=== PATIENT | male | born 1950 | race Caucasian/White ===

== ENCOUNTER 2018-10-16 10:57 | Outpatient (CLI) | payer MEDICARE, BC ==
--- NOTE | 2018-10-16 13:35 | CT ---
CT LUMBAR SPINE: HISTORY: Pain down right leg. FINDINGS: Axial images are obtained with coronal and sagittal reconstructions. CT images demonstrate grade II anterolisthesis of L4 on L5. Vacuum disk change is seen at the L4-5 l evel. The patient has had posterior fusion with pedicle screws involving the L4 and L5 levels bilate rally. The patient has had posterior laminectomies at the L4 level. Partial resection of the L3 spi nous process is also present without evidence of laminectomy changes. The L4 and L5 pedicle hardware is in position without evidence of loosening or fractures. IMPRESSION: 1. Continued grade II anterolisthesis of L4 on L5. 2. Extensive epidural postsurgical changes seen at the L4-5 central spinal canal. Central canal pat hology or significant stenosis cannot be excluded due to soft tissues. POS: [facility]
== END 2018-10-16 10:58 | disposition home or self-care (01) ==
LOC: CT 10:57
PROVIDERS: ATTEND Neurological Surgery
DX: M43.16 Spondylolisthesis, lumbar region (principal)
CPT/HCPCS: 72131

== ENCOUNTER 2022-09-04 18:25 | Inpatient (IN) | payer MEDICARE, BC ==
[~2022-09-04 18:25] MED LIST: Iopamidol-370 76% 500 ML 1 ML ONE
[2022-09-04] MEDS ORDERED: Labetalol HCl 100 MG/20 ML VIAL ONE (18:35)
[2022-09-04 18:41] LABS: #Basophils 0.1 thou/uL (0.0-0.2); #Eosinphils 0.2 thou/uL (0.0-0.7); #Monocytes 0.9 thou/uL (0.11-0.59); #Neutrophils 5.4 thou/uL (1.40-6.50); %Basophils 0.9 % (0.0-1.0); %Eosinophils 2.2 % (0.0-10.0); %Lymphocytes 13.3 % (21.0-51.0); %Monocytes 12.4 % (0.0-10.0); %Neutrophils 71.2 % (42.0-75.0); Hemoglobin 9.4 g/dL (14.0-18.0); Mean Corpuscular HGB CONC 35.4 g/dL (32.0-36.0); Mean Corpuscular Hemoglobin 34.5 pg (27.0-31.0); Mean Corpuscular Volume 97.5 fl (78.0-98.0); Platelet Count 521 10x3/uL (130-400); Red Blood Cell (RBC) Count 2.73 mill/uL (4.70-6.10); White Blood Cell (WBC) Count 7.5 10x3/uL (4.8-10.8)
[2022-09-04 18:54] LABS: ALT (SGPT) 18 U/L (8-55); AST (SGOT) 21 U/L (5-34); Albumin 3.9 g/dL (3.4-4.8); Alkaline Phosphatase 52 U/L (40-110); Anion Gap 15 mmol/L (10-20); BUN (Urea Nitrogen) 12 mg/dL (8.4-25.7); Bilirubin, Total 0.4 mg/dL (0.2-1.2); CK (CPK) 78 U/L (30-200); Calc. Creatinine Clearance 0 mL/min (70-130); Carbon Dioxide 20 mmol/L (23-31); Chloride 83 mmol/L (98-107); Estimated GFR 72; Globulin 2.7 g/dL (2.4-3.5); Glucose 131 mg/dL (83-110); INR-International Normal Ratio 0.9; Potassium 3.7 mmol/L (3.5-5.1); Protein, Total 6.6 g/dL (5.8-8.1); Prothrombin Time 12.8 sec (12.0-14.7)
[2022-09-04 18:59] LABS: Sodium 114 mmol/L (136-145)
[2022-09-04] MEDS ORDERED: Sodium Chloride 256 MEQ in Sterile Water Injection 936 ML IV SCH (19:30)
[2022-09-04] MEDS ORDERED: Aspirin 81 mg Enteric Coated Tablet ONE (19:47)
[2022-09-04] MEDS ORDERED: Aspirin Chewable 81 MG TAB ONE (19:47)
[2022-09-04 19:59] LABS: Anion Gap 16 mmol/L (10-20); BUN (Urea Nitrogen) 11 mg/dL (8.4-25.7); Calc. Creatinine Clearance 0 mL/min (70-130); Calcium 8.7 mg/dL (7.8-10.44); Carbon Dioxide 19 mmol/L (23-31); Chloride 82 mmol/L (98-107); Estimated GFR 88; Glucose 117 mg/dL (83-110); Potassium 3.8 mmol/L (3.5-5.1)
[2022-09-04 20:12] LABS: Sodium 113 mmol/L (136-145)
[2022-09-04] MEDS ORDERED: Acetaminophen 325 MG TAB PO PRN (21:12)
[2022-09-04] MEDS ORDERED: Ondansetron PF 4 MG/2 ML Vial IVP PRN (21:12)
[2022-09-04] MEDS ORDERED: Lorazepam 1 MG TAB PO PRN (21:14)
[2022-09-04] MEDS ORDERED: Lorazepam 2 MG/ML VIAL IM PRN (21:14)
[2022-09-04] MEDS ORDERED: Electrolyte Replacement Protocol 1 EACH FS PRN (21:15)
[2022-09-04 21:33] LABS: Bacteria/HPF None Seen HPF (None Seen); Bilirubin Negative (Negative); Blood, Urine Negative (Negative); Clarity Clear (Clear); Glucose, Urine (Dipstick) Normal (Negative); Ketone, Urine Negative (Negative); Leukocyte Negative Leu/uL (Negative); Nitrite Negative (Negative); Protein, Urine (Dipstick) Negative (Neg-Trace); RBC/HPF 0-3 HPF (0-3); Squamous Epithelial None Seen HPF (0-3); Urobilinogen Normal mg/dL (Less than 2); WBC/HPF 0-3 HPF (0-3)
[2022-09-04] MEDS ORDERED: Lorazepam 2 MG/ML VIAL SLOW IVP PRN (22:21)
[2022-09-04 22:25] LABS: Magnesium 1.6 mg/dL (1.6-2.6)
[2022-09-04 22:30] LABS: Troponin I 0.011 ng/mL (< 0.028)
[2022-09-04 22:45] LABS: Free T4 (Free Thyroxine) 0.93 ng/dL (0.70-1.48)
[2022-09-04 22:53] VITALS: BMI 29.7
[2022-09-04] MEDS: Thiamine HCl 200 MG/2 ML VIAL SLOW IVP SCH (23:07)
[2022-09-04] MEDS: Lorazepam 1 MG TAB PO SCH (23:07)
[2022-09-05 00:38] LABS: Amphetamine Not Detected (NotDetected); Barbiturates Screen Not Detected (NotDetected); Benzodiazepine Screen Not Detected (NotDetected); Cocaine Metabolite Screen Not Detected (NotDetected); Methadone Not Detected (NotDetected); Methamphetamine Not Detected (NotDetected); Opiate Screen Detected (NotDetected); Oxycodone Screen Not Detected (NotDetected); Phencyclidine (PCP) Not Detected (NotDetected); THC/Cannabinoid Screen Not Detected (NotDetected); Tricyclic Screen Detected (NotDetected)
[2022-09-05 03:39] LABS: Anion Gap 15 mmol/L (10-20); BUN (Urea Nitrogen) 10 mg/dL (8.4-25.7); Calc. Creatinine Clearance 90 mL/min (70-130); Calcium 9.1 mg/dL (7.6-10.4); Carbon Dioxide 22 mmol/L (23-31); Chloride 84 mmol/L (98-107); Estimated GFR 86; Glucose 102 mg/dL (83-110); Potassium 3.5 mmol/L (3.5-5.1); Sodium 117 mmol/L (136-145)
[2022-09-05 03:40] LABS: Troponin I 0.015 ng/mL (< 0.028)
[2022-09-05] MEDS: Lorazepam 1 MG TAB PO SCH ×4 (04:53→22:25)
[2022-09-05 06:14] LABS: #Eosinphils 0.1 thou/uL (0.0-0.7); #Lymphocytes 0.6 thou/uL (1.20-3.40); #Neutrophils 5.9 thou/uL (1.40-6.50); %Basophils 0.3 % (0.0-1.0); %Lymphocytes 8.3 % (21.0-51.0); %Monocytes 13.4 % (0.0-10.0); %Neutrophils 77.1 % (42.0-75.0); Hemoglobin 9.6 g/dL (14.0-18.0); Mean Corpuscular HGB CONC 34.5 g/dL (32.0-36.0); Mean Corpuscular Volume 98.6 fl (78.0-98.0); Mean Platelet Volume 6.3 fL (7.4-10.4); Platelet Count 507 10x3/uL (130-400); RBC Distribution Width 10.9 % (11.5-14.5); Red Blood Cell (RBC) Count 2.82 mill/uL (4.70-6.10); White Blood Cell (WBC) Count 7.6 10x3/uL (4.8-10.8)
[2022-09-05 06:32] LABS: Anion Gap 12 mmol/L (10-20); BUN (Urea Nitrogen) 9 mg/dL (8.4-25.7); Calc. Creatinine Clearance 0 mL/min (70-130); Calcium 9.1 mg/dL (7.8-10.44); Carbon Dioxide 22 mmol/L (23-31); Chloride 91 mmol/L (98-107); Estimated GFR 92; Glucose 96 mg/dL (83-110); Potassium 3.4 mmol/L (3.5-5.1); Sodium 122 mmol/L (136-145)
[2022-09-05] MEDS ORDERED: HYDROcodone/Acetaminophen 5/325 mg Tablet PO PRN (08:12)
[2022-09-05] MEDS: Multivit, Therapeutic 1 TAB PO SCH (08:39)
[2022-09-05] MEDS: Folic Acid 1 MG TAB PO SCH (08:39)
[2022-09-05] MEDS ORDERED: Potassium Chloride 20 MEQ TAB PO SCH (09:45)
[2022-09-05] MEDS: Tamsulosin HCl 0.4 MG CAP PO SCH (10:16)
[2022-09-05] MEDS: DULoxetine 30 MG CAP PO SCH (10:16)
[2022-09-05] MEDS: Fenofibrate Nanocrystallized 145 MG TAB PO SCH (10:16)
[2022-09-05] MEDS: Cyclobenzaprine 10 MG TAB PO SCH ×3 (10:16→22:26)
[2022-09-05] MEDS ORDERED: Pantoprazole 40 MG VIAL IVP SCH (11:15)
[2022-09-05 12:29] LABS: Anion Gap 15 mmol/L (10-20); BUN (Urea Nitrogen) 8 mg/dL (8.4-25.7); Calc. Creatinine Clearance 0 mL/min (70-130); Calcium 9.7 mg/dL (7.8-10.44); Carbon Dioxide 21 mmol/L (23-31); Chloride 95 mmol/L (98-107); Estimated GFR 91; Glucose 91 mg/dL (83-110); Potassium 3.5 mmol/L (3.5-5.1); Sodium 127 mmol/L (136-145)
[2022-09-05 16:40] LABS: Anion Gap 20 mmol/L (10-20); BUN (Urea Nitrogen) 7 mg/dL (8.4-25.7); Calc. Creatinine Clearance 0 mL/min (70-130); Calcium 9.9 mg/dL (7.8-10.44); Carbon Dioxide 19 mmol/L (23-31); Chloride 96 mmol/L (98-107); Estimated GFR 90; Glucose 89 mg/dL (83-110); Potassium 3.7 mmol/L (3.5-5.1); Sodium 131 mmol/L (136-145)
[2022-09-05 17:28] LABS: Hemoglobin 10.4 g/dL (14.0-18.0)
[2022-09-05] MEDS ORDERED: Lorazepam 1 MG TAB PO PRN (21:14)
[2022-09-05] MEDS: traZODone HCl 150 MG TAB PO SCH (22:25)
[2022-09-05] MEDS: Thiamine HCl 200 MG/2 ML VIAL SLOW IVP SCH (22:25)
[2022-09-05] MEDS: QUETIAPINE 200 MG PO SCH (22:25)
[2022-09-05] MEDS: Pantoprazole 40 MG VIAL IVP SCH (22:25)
[2022-09-05] MEDS: Rosuvastatin 20 MG TAB PO SCH (22:26)
[2022-09-05] MEDS: Mirtazapine 15 MG TAB PO SCH (22:26)
[2022-09-06 02:30] LABS: #Eosinphils 0.1 thou/uL (0.0-0.7); #Lymphocytes 0.7 thou/uL (1.20-3.40); #Monocytes 0.9 thou/uL (0.11-0.59); #Neutrophils 4.7 thou/uL (1.40-6.50); %Basophils 0.3 % (0.0-1.0); %Eosinophils 0.9 % (0.0-10.0); %Lymphocytes 10.4 % (21.0-51.0); %Monocytes 14.6 % (0.0-10.0); %Neutrophils 73.8 % (42.0-75.0); Mean Corpuscular HGB CONC 34.3 g/dL (32.0-36.0); Mean Corpuscular Hemoglobin 33.8 pg (27.0-31.0); Mean Corpuscular Volume 98.3 fl (78.0-98.0); Mean Platelet Volume 6.3 fL (7.4-10.4); Platelet Count 554 10x3/uL (130-400); RBC Distribution Width 11.1 % (11.5-14.5); Red Blood Cell (RBC) Count 2.96 mill/uL (4.70-6.10); White Blood Cell (WBC) Count 6.4 10x3/uL (4.8-10.8)
[2022-09-06] MEDS: Lorazepam 1 MG TAB PO SCH ×3 (02:39→15:22)
[2022-09-06 03:01] LABS: ALT (SGPT) 19 U/L (8-55); AST (SGOT) 22 U/L (5-34); Albumin 3.5 g/dL (3.4-4.8); Alkaline Phosphatase 50 U/L (40-110); Anion Gap 12 mmol/L (10-20); BUN (Urea Nitrogen) 6 mg/dL (8.4-25.7); Bilirubin, Total 0.3 mg/dL (0.2-1.2); Calc. Creatinine Clearance 0 mL/min (70-130); Calcium 9.6 mg/dL (7.8-10.44); Carbon Dioxide 25 mmol/L (23-31); Chloride 100 mmol/L (98-107); Estimated GFR 89; Globulin 2.8 g/dL (2.4-3.5); Glucose 97 mg/dL (83-110); Potassium 3.1 mmol/L (3.5-5.1); Protein, Total 6.3 g/dL (5.8-8.1); Sodium 134 mmol/L (136-145)
[2022-09-06] MEDS: Levothyroxine Sodium 75 MCG TAB PO SCH (06:16)
[2022-09-06] MEDS ORDERED: Potassium Chloride 20 MEQ TAB PO SCH (08:00)
[2022-09-06] MEDS: Cyclobenzaprine 10 MG TAB PO SCH ×3 (09:02→22:04)
[2022-09-06] MEDS: Folic Acid 1 MG TAB PO SCH (09:02)
[2022-09-06] MEDS: Fenofibrate Nanocrystallized 145 MG TAB PO SCH (09:02)
[2022-09-06] MEDS: Multivit, Therapeutic 1 TAB PO SCH (09:02)
[2022-09-06] MEDS: DULoxetine 30 MG CAP PO SCH (09:02)
[2022-09-06] MEDS: Tamsulosin HCl 0.4 MG CAP PO SCH (09:02)
[2022-09-06] MEDS: Pantoprazole 40 MG VIAL IVP SCH ×2 (09:03→22:03)
[2022-09-06] MEDS ORDERED: Lorazepam 1 MG TAB PO PRN (21:14)
[2022-09-06] MEDS: GoLYTELY 4,000 ml Bottle PO SCH (22:02)
[2022-09-06] MEDS: Thiamine HCl 200 MG/2 ML VIAL SLOW IVP SCH (22:03)
[2022-09-06] MEDS: Mirtazapine 15 MG TAB PO SCH (22:03)
[2022-09-06] MEDS: Rosuvastatin 20 MG TAB PO SCH (22:04)
[2022-09-06] MEDS: Lorazepam 0.5 MG TAB PO SCH (22:04)
[2022-09-06] MEDS: traZODone HCl 150 MG TAB PO SCH (22:04)
[2022-09-06] MEDS: QUETIAPINE 200 MG PO SCH (23:29)
[2022-09-07 02:18] LABS: SARS-CoV-2 NAA Rapid Test Not Detected (NotDetected)
[2022-09-07] MEDS: GoLYTELY 4,000 ml Bottle PO SCH (03:30)
[2022-09-07] MEDS: Lorazepam 0.5 MG TAB PO SCH ×3 (03:30→14:26)
[2022-09-07 05:42] LABS: Hemoglobin 9.7 g/dL (14.0-18.0); Mean Corpuscular HGB CONC 34.3 g/dL (32.0-36.0); Mean Corpuscular Hemoglobin 33.9 pg (27.0-31.0); Mean Corpuscular Volume 98.9 fl (78.0-98.0); Mean Platelet Volume 6.2 fL (7.4-10.4); Platelet Count 531 10x3/uL (130-400); RBC Distribution Width 11.2 % (11.5-14.5); Red Blood Cell (RBC) Count 2.84 mill/uL (4.70-6.10); White Blood Cell (WBC) Count 7.2 10x3/uL (4.8-10.8)
[2022-09-07 06:05] LABS: Anion Gap 11 mmol/L (10-20); BUN (Urea Nitrogen) 6 mg/dL (8.4-25.7); Calc. Creatinine Clearance 82 mL/min (70-130); Calcium 9.1 mg/dL (7.8-10.44); Carbon Dioxide 24 mmol/L (23-31); Chloride 103 mmol/L (98-107); Estimated GFR 75; Glucose 101 mg/dL (83-110); Potassium 3.2 mmol/L (3.5-5.1); Sodium 135 mmol/L (136-145)
[2022-09-07 06:10] LABS: Eosinophils 1 % (0-10); Lymphocytes 14 % (21-51); MDiff Complete? YES; Macrocytosis SLIGHT = 6-15 cells (100X) (0-5/hpf); Monocytes 12 % (0-10); Neutrophil 72 % (42-75); Ovalocytes SLIGHT = 2-5 cells (100X) (0-1/hpf); Platelet Morphology Comment Appears Increased
[2022-09-07] MEDS: Levothyroxine Sodium 75 MCG TAB PO SCH (06:30)
[2022-09-07] MEDS ORDERED: Potassium Chloride 20 MEQ TAB PO SCH (08:00)
[2022-09-07] MEDS ORDERED: PROPOFOL 200 MG/20 ML VIAL ONE (09:03)
[2022-09-07] MEDS: Pantoprazole 40 MG VIAL IVP SCH ×2 (10:54→22:46)
[2022-09-07] MEDS: DULoxetine 30 MG CAP PO SCH (10:55)
[2022-09-07] MEDS: Fenofibrate Nanocrystallized 145 MG TAB PO SCH (10:55)
[2022-09-07] MEDS: Folic Acid 1 MG TAB PO SCH (10:55)
[2022-09-07] MEDS: Cyclobenzaprine 10 MG TAB PO SCH ×3 (10:55→22:45)
[2022-09-07] MEDS: Tamsulosin HCl 0.4 MG CAP PO SCH (10:55)
[2022-09-07] MEDS: Multivit, Therapeutic 1 TAB PO SCH (10:55)
[2022-09-07] MEDS ORDERED: Lorazepam 0.5 MG TAB PO PRN (21:14)
[2022-09-07] MEDS ORDERED: Thiamine 100 MG TAB PO SCH (21:15)
[2022-09-07] MEDS: QUETIAPINE 200 MG PO SCH (22:45)
[2022-09-07] MEDS: Rosuvastatin 20 MG TAB PO SCH (22:45)
[2022-09-07] MEDS: Mirtazapine 15 MG TAB PO SCH (22:46)
[2022-09-07] MEDS: traZODone HCl 150 MG TAB PO SCH (22:46)
[2022-09-07] MEDS ORDERED: FLU VACC QS2022-23(65YR UP)/PF 240 MCG/0.7 ML SYRINGE IM ONE (23:45)
[2022-09-08 05:40] LABS: Mean Corpuscular HGB CONC 34.4 g/dL (32.0-36.0); Mean Corpuscular Hemoglobin 34.4 pg (27.0-31.0); Mean Corpuscular Volume 99.9 fl (78.0-98.0); Mean Platelet Volume 6.4 fL (7.4-10.4); Platelet Count 487 10x3/uL (130-400); RBC Distribution Width 11.3 % (11.5-14.5); White Blood Cell (WBC) Count 7.1 10x3/uL (4.8-10.8)
[2022-09-08 05:54] LABS: Anion Gap 12 mmol/L (10-20); BUN (Urea Nitrogen) 8 mg/dL (8.4-25.7); Calc. Creatinine Clearance 0 mL/min (70-130); Calcium 9.3 mg/dL (7.8-10.44); Carbon Dioxide 25 mmol/L (23-31); Chloride 106 mmol/L (98-107); Estimated GFR 66; Glucose 115 mg/dL (83-110); Potassium 3.6 mmol/L (3.5-5.1); Sodium 139 mmol/L (136-145)
[2022-09-08] MEDS: Levothyroxine Sodium 75 MCG TAB PO SCH (06:04)
[2022-09-08] MEDS: Tamsulosin HCl 0.4 MG CAP PO SCH (09:03)
[2022-09-08] MEDS: Pantoprazole 40 MG VIAL IVP SCH (09:03)
[2022-09-08] MEDS: Folic Acid 1 MG TAB PO SCH (09:03)
[2022-09-08] MEDS: Multivit, Therapeutic 1 TAB PO SCH (09:03)
[2022-09-08] MEDS: DULoxetine 30 MG CAP PO SCH (09:03)
[2022-09-08] MEDS: Fenofibrate Nanocrystallized 145 MG TAB PO SCH (09:06)
[2022-09-08] MEDS: Cyclobenzaprine 10 MG TAB PO SCH (09:07)
[2022-09-08 13:14] VITALS: BP 93/65; TEMP 97.9
== END 2022-09-08 13:30 | disposition home or self-care (01) | DRG 896 ==
LOC: ERS 18:25 → IMCU/EMU 21:06 → SURG A 09-06 15:47
PROVIDERS: ADMIT Internal Medicine; ATTEND Internal Medicine
PROC: 0DBK8ZZ Excision of Ascending Colon, Via Natural or Artificial Opening Endoscopic (ICD-10-PCS; principal; 2022-09-07)
PROC: 0DBM8ZZ Excision of Descending Colon, Via Natural or Artificial Opening Endoscopic (ICD-10-PCS; 2022-09-07)
DX: F10.239 Alcohol dependence with withdrawal, unspecified (principal); J96.01 Acute respiratory failure with hypoxia; E87.1 Hypo-osmolality and hyponatremia; K62.5 Hemorrhage of anus and rectum; Z20.822 Contact with and (suspected) exposure to COVID-19; I10 Essential (primary) hypertension; E78.5 Hyperlipidemia, unspecified; E03.9 Hypothyroidism, unspecified; N40.0 Benign prostatic hyperplasia without lower urinary tract symptoms; F31.9 Bipolar disorder, unspecified; G89.29 Other chronic pain; G43.909 Migraine, unspecified, not intractable, without status migrainosus; D64.9 Anemia, unspecified; M19.90 Unspecified osteoarthritis, unspecified site; M54.9 Dorsalgia, unspecified; K63.5 Polyp of colon; K57.30 Diverticulosis of large intestine without perforation or abscess without bleeding; F10.20 Alcohol dependence, uncomplicated; K62.7 Radiation proctitis; W88.1XXA Exposure to radioactive isotopes, initial encounter; Z88.0 Allergy status to penicillin; Z82.49 Family history of ischemic heart disease and other diseases of the circulatory system; Z87.891 Personal history of nicotine dependence; Z86.73 Personal history of transient ischemic attack (TIA), and cerebral infarction without residual deficits; Z90.89 Acquired absence of other organs; Z85.46 Personal history of malignant neoplasm of prostate; Z71.41 Alcohol abuse counseling and surveillance of alcoholic
CPT/HCPCS: 36415; 70450; 70496; 70498; 70551; 71045; 80048; 80053; 80306; 80307; 81001; 82274; 82533; 82550; 82570; 83735; 83930; 83935; 84300; 84439; 84443; 84481; 84484; 84550; 85025; 85027; 85610; 85730; 88305; 93005; 94760; 95712; 95819; 95957; C9113; J1650; J2060; J2704; J3411; Q9967; U0002